=== PATIENT | male | born 1965 | race Two or more races ===

== ENCOUNTER 2025-02-18 16:05 | Emergency (ER) | payer MEDICAID, OTHER ==
[~2025-02-18] VITALS: Ht 182.9 cm; Wt 91.0 kg
[2025-02-18 16:12] VITALS: BP 182/100; PULSE 89; RESP 16; TEMP 97.8; O2SAT 98
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
[2025-02-18] MEDS: HYDROcodone-ACET 5/325MG TAB PO ONE (17:00)
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
== END 2025-02-18 19:05 | disposition home or self-care (01) ==
LOC: EDBD 16:05 → ER 16:05
DX: S56.912A Strain of unspecified muscles, fascia and tendons at forearm level, left arm, initial encounter (principal); V89.2XXA Person injured in unspecified motor-vehicle accident, traffic, initial encounter; Y93.89 Activity, other specified; Y92.410 Unspecified street and highway as the place of occurrence of the external cause; Y99.8 Other external cause status
CPT/HCPCS: 70450; 71045; 73090